=== PATIENT | male | born 1955 | race Caucasian/White ===

== ENCOUNTER 2018-06-25 06:55 | Inpatient (IN) ==
--- NOTE | 2018-06-25 07:40 | PROVIDER DOCUMENTATION ---
HPI-Respiratory General - General Chief Complaint: Chest Pain Stated Complaint: chest pain Time Seen by Provider: 06/25/18 07:36 Source: patient Allergies/Adverse Reactions: Patient Allergies Allergy/AdvReac Type Severity Reaction Status Date / Time hydrochlorothiazide Allergy Unknown Verified 06/25/18 07:34 Home Medications: Home Medication List Medication Instructions Recorded Confirmed Last Taken Type ATORVAstatin [Lipitor] 40 mg PO QHS 08/20/16 06/25/18 01/29/17 History Amlodipine [Norvasc] 10 mg PO DAILY 08/20/16 06/25/18 01/29/17 20:00 History Clopidogrel Bisulfate [Plavix] 75 mg PO DAILY 08/20/16 06/25/18 01/25/17 History Ferrous Sulfate [Iron] 325 mg PO DAILY 01/28/17 06/25/18 01/29/17 11:00 History Allopurinol 100 mg PO DAILY 06/25/18 06/25/18 Unknown History Aspirin [Adult Aspirin] 81 mg PO DAILY 06/25/18 06/25/18 Unknown History Carvedilol 12.5 mg PO BID 06/25/18 06/25/18 Unknown History Cinacalcet HCl [Sensipar] 30 mg PO EVERY OTHER DAY MDD MWF 06/25/18 06/25/18 Unknown History Gabapentin 100 mg PO BID 06/25/18 06/25/18 Unknown History Insulin Glargine,Hum.rec.anlog 5 unit SQ HS 06/25/18 06/25/18 Unknown History [Lantus Solostar] Insulin Lispro [Humalog] 5 unit SQ TID MDD SLIDING SCALE 06/25/18 06/25/18 Unknown History Mycophenolate Mofetil 500 mg PO BID 06/25/18 06/25/18 Unknown History Pantoprazole Sodium 40 mg PO BID 06/25/18 06/25/18 Unknown History Prednisone 5 mg PO DAILY 06/25/18 06/25/18 Unknown History Sodium Bicarbonate 1,300 mg PO BID 06/25/18 06/25/18 Unknown History Sulfamethoxazole/Trimethoprim 400 mg PO EVERY OTHER DAY MDD M, 06/25/18 Unknown History [Bactrim 400-80 mg Tablet] W, F Tacrolimus 0.5 mg PO DAILY MDD every am, one 06/25/18 06/25/18 Unknown History capsule Tacrolimus 1 mg PO HS 06/25/18 06/25/18 Unknown History Tamsulosin HCl 0.4 mg PO DAILY 06/25/18 06/25/18 Unknown History Amoxicillin/Potassium Clav 1 ea PO Q12H #14 tab 06/29/18 Unknown Rx [Augmentin 500-125 Tablet] Linezolid [Zyvox] 600 mg PO Q12HR #14 tab 06/29/18 Unknown Rx - History of Present Illness-Resp Quality of Pain: reports: sharp Onset/Duration: reports: abrupt, this morning Timing: reports: still present Context: reports: other (fever and cough associated with respiratory distress) Cough Quality/Degree: reports: moderate Current Respiratory Medication Therapy: Initiated other (non-rebreather) Modifying Factors: improves with: exertion Associated Symptoms: reports: cough, fever/chills, heart racing, hurts to breathe, shortness of breath Similar Symptoms Previously?: No Recently seen or treated by another doctor?: No Review of Systems - Adult - REVIEW OF SYSTEMS - ADULT Constitutional: reports: fever Eyes: reports: no symptoms reported Ears, Nose, Mouth & Throat: reports: no symptoms reported Cardiovascular: reports: chest pain, palpitations Respiratory: reports: cough, pleurisy, shortness of breath Gastrointestinal: reports: vomiting. denies: diarrhea Genitourinary: reports: no symptoms reported Integumentary: reports: no symptoms reported Neurological: reports: no symptoms reported. denies: seizure, syncope Psychiatric: reports: no symptoms reported Endocrine: reports: no symptoms reported Hematologic/Lymphatic: reports: no symptoms reported Allergic/Immunologic: reports: no symptoms reported Past History - Adult - PAST MEDICAL HISTORY-ADULT Review of Records: reports: Nursing Assessment Review, Medications Reviewed - PRIOR SURGERIES/PROCEDURES Surgical/Procedure History: reports: other (kidney transplant) Physical Exam-General - PHYSICAL EXAM-ADULT Initial Vital Signs Reviewed: Yes - CONSTITUTIONAL General Appearance: moderate distress - EYES Eyes: PERRL/EOMI - HEAD, EARS, NOSE, MOUTH & THROAT HENMT: normocephalic/atraumatic - NECK Neck: lymphadenopathy. negative: tender midline - RESPIRATORY Respiratory: respiratory distress, accessory muscle use, crackles, rhonchi, retractions - CARDIOVASCULAR Cardiovascular: no edema, no JVD, tachycardia - GASTROINTESTINAL (ABDOMEN) Abdominal Exam: non tender, soft - LYMPHATIC Lymphatic: no adenopathy - MUSCULOSKELETAL Back Exam: no CVA tenderness, no vertebral tenderness Extremity: non-tender - SKIN Integumentary: normal color, normal turgor, warm/dry - NEUROLOGIC Neurologic: branch account executive II-XII nml as tested, no motor/sensory deficits - PSYCHIATRIC Psych/Mental Status: normal mood/affect Progress - PLAN OF CARE/RESULTS Progress/Plan/Lab Results: Orders Category Date [facility] Routine AdmDCTranf 06/25/18 08:55 Active Activity - Up with Assistance ORDERED Care 06/25/18 10:11 Active Cardiac Monitoring DIRECTED Care 06/25/18 08:31 Completed Elevate Head of Bed DIRECTED Care 06/25/18 10:11 Active Encourage Fluids DIRECTED Care 06/25/18 10:11 Active IV Insertion ORDERED Care 06/25/18 08:31 Completed Intake and Output-Strict Q 8-HR ASSESS Care 06/25/18 10:11 Active Notify MD of + Sepsis Screen NOW Care 06/25/18 08:31 Completed Notify Physician As Ordered Care 06/25/18 08:31 Active Nursing- Assist w/ IS as order ORDERED Care 06/25/18 10:11 Active Nursing- MD Consult Request ROUTINE Care 06/25/18 08:39 Completed Nursing- MD Consult Request ROUTINE Care 06/25/18 08:45 Completed Saline Loc NOW Care 06/25/18 07:25 Completed Turn, Cough and Deep Breathe Q2HR Care 06/25/18 10:11 Active Update & Confirm Home Medicati ROUTINE Care 06/25/18 08:39 Completed Vital Signs Order Q 4-HR ASSESS Care 06/25/18 10:11 Active Z-Document. for Tele Applied ORDERED Care 06/25/18 10:11 Completed MD [Physician/Provider Consults] Routine Cons 06/25/18 08:38 Ordered MD [Physician/Provider Consults] Routine Cons 06/25/18 08:43 Ordered Social Service Consult Routine Cons 06/25/18 10:11 Active Renal Diet Diet 06/25/18 08:55 Completed CHEST-PORTABLE [RAD] Stat Exams 06/25/18 07:26 Completed ABG [RESP] Routine Lab 06/25/18 07:45 Completed BLOOD CULTURE [BLDCUL] Stat Lab 06/25/18 08:00 Completed CBC WITH DIFF [HEME] Routine Lab 06/26/18 04:45 Completed CBC WITH DIFF [HEME] Stat Lab 06/25/18 07:25 Completed CK TOTAL [CHEM] Stat Lab 06/25/18 07:25 Completed COMPREHENSIVE METABOLIC PANEL [CHEM] Routine Lab 06/26/18 04:45 Completed COMPREHENSIVE METABOLIC PANEL [CHEM] Stat Lab 06/25/18 07:25 Completed INFLUENZA SCREEN A/B Stat Lab 06/25/18 07:25 Completed LACTATE, PLASMA [CHEM] Lab 06/25/18 12:05 Completed LACTATE, PLASMA [CHEM] Lab 06/25/18 14:47 Completed LACTATE, PLASMA [CHEM] Stat Lab 06/25/18 07:25 Completed PRO B-NATRIURETIC PEPTIDE Stat Lab 06/25/18 07:25 Completed TROPONIN T Stat Lab 06/25/18 07:25 Completed URINALYSIS [URINALYSIS] Stat Lab 06/25/18 07:30 Completed 0.9% Sodium Chloride Inj [Ns] 1,000 ml Med 06/25/18 09:00 Discontinued IV 50 mls/hr 0.9% Sodium Chloride Inj [Ns] 1,000 ml Med 06/25/18 08:36 Discontinued IV Wide Open Acetaminophen [Tylenol] Med 06/25/18 08:55 Discontinued 650 mg PO Q4H PRN PRN Albuterol 2.5MG/Ipratrop 0.5MG [Duoneb (A & A)] Med 06/25/18 08:45 Discontinued 3 ml INH NOW ONE Budesonide [Pulmicort] Med 06/25/18 19:30 Discontinued 0.5 mg INH RTQ12H Heparin Med 06/25/18 21:00 Discontinued 5,000 unit SUBQ Q12H Ipratropium [place] Neb [Atrovent Neb] Med 06/25/18 11:30 Discontinued 0.5 mg INH RTQ4H Levalbuterol Neb [Xopenex Neb] Med 06/25/18 11:30 Discontinued 1.25 mg INH RTQ4H Linezolid 600 mg/D5w [Zyvox 600 mg/D5w] Med 06/25/18 08:45 Discontinued 600 mg in 300 ml IV Q12H Methylprednisolone Sod Succ [Solu-Medrol] Med 06/25/18 08:46 Discontinued 125 mg IV NOW ONE Methylprednisolone Sod Succ [Solu-Medrol] Med 06/25/18 17:00 Discontinued 40 mg IV Q8H Piperacillin/Tazobactam [Zosyn] 2.25 gm Med 06/25/18 17:00 Discontinued 0.9% Sodium Chloride Inj [Ns] 50 ml IV Q8H Piperacillin/Tazobactam [Zosyn] 3.375 gm Med 06/25/18 08:26 Discontinued 0.9% Sodium Chloride Inj [Ns] 50 ml IV NOW Sodium Chloride 0.9% Neb [Ns Neb] Med 06/25/18 09:00 Discontinued 5 ml INH DIRECTED Aerosol Treatments Routine Ot 06/25/18 08:45 Completed Aerosol Treatments Routine [facility] 06/25/18 08:47 Completed Aerosol Treatments Stat [facility] 06/25/18 08:45 Completed Aerosol Treatments Stat [facility] 06/25/18 08:47 Completed Incentive Spirometer Routine [facility] 06/25/18 10:11 Completed Oxygen Device Routine [facility] 06/25/18 10:11 Completed Oxygen Device Stat [facility] 06/25/18 08:31 Completed Pulse Oximetry Routine [facility] 06/25/18 10:11 Completed Pulse Oximetry Stat [facility] 06/25/18 07:25 Completed Telemetry [OM.EQ] Routine [facility] 06/25/18 10:11 Active EKG [EKG] Stat Ther 06/25/18 07:05 Draft Transfer/Admit Order [TRANSFER] Routine Transfer 06/25/18 08:51 Completed Result Diagrams: 06/29/18 11:34 06/28/18 07:07 Departure - Departure Date of Disposition Decision: 06/25/18 Time of Disposition Decision: 08:55 DIAGNOSIS: Sepsis, Left lower lobe pneumonia, 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 Attestation - Physician/ ZHEN Attestation Patient care was provided by Advanced Practice Provider:: No The physician spent face to face time with patient:: Yes Advanced Practice Provider documentation review:: Supervising physician onsite and consulted in the evaluation and care of this patient. The physician did have a face to face encounter with the patient.
[2018-06-25 07:52] LABS: ALLEN TEST NO; BE -5.6 mmoll (-3.0-3.0); BLOOD TYPE ARTERIAL; HCO3-(ACT) 20.5 mmoll (20.0-26.0); METHB 1.1 % (0.0-1.5); MODALITY PRB; O2(CT) 15.6 mL/dL (15.0-23.0); O2HB 94.2 % (95.0-99.0); PCO2(98.6) 39 mmHg (35-45); PO2(98.6) 83 mmHg (60-100); SAMPLE BLOOD; SAO2 97.7 % (95.0-100.0); THB 11.7 g/dL (11.5-17.4); pH(98.6) 7.32 (7.35-7.45)
--- NOTE | 2018-06-25 07:59 | Diag Imaging Result Doc PS360 ---
EXAM: CHEST-PORTABLE 06/25/2018 HISTORY: cough TECHNIQUE: AP portable upright at 0737 COMMENT: There is alveolar opacity throughout the left lower lobe. This was not present on 11/08/2017. IMPRESSION: Left lower lobe pneumonia. Electronically signed by Kendrick Ward 06/25/2018 7:57 AM
[2018-06-25 08:00] LABS: URINE SOURCE VOIDED
[2018-06-25 08:15] LABS: BASO# 0.03 X1000 (0.0-0.2); BASO% 0.4 % (0.0-0.8); EOS# 0.07 X1000 (0.0-0.7); EOS% 0.9 % (0.0-10.0); HEMATOCRIT 40.3 % (42.0-52.0); HEMOGLOBIN 12.7 g/dL (14.0-18.0); IMM GRAN# 0.04 X1000 (0.0-0.04); IMM GRAN% 0.5 % (0.0-0.5); LYMPH# 0.66 X1000 (1.2-3.4); LYMPH% 8.3 % (20.5-51.1); MCH 28.7 PG (27-31); MCHC 31.5 g/dL (33-37); MCV 91.2 FL (81-99); MONO# 0.29 X1000 (0.11-0.59); MONO% 3.6 % (1.7-9.3); MPV 11.8 FL (7.4-10.4); NEUT# 6.91 X1000 (1.4-6.5); NEUT% 86.3 % (42.2-75.2); PLT 177 X1000 (130-400); RBC 4.42 XMIL (4.7-6.1); RDW 14.7 % (11.5-14.5)
[2018-06-25 08:16] LABS: BILIRUBIN URINE NEGATIVE (NEGATIVE); BLOOD URINE SMALL (NEGATIVE); COLOR YELLOW; GLUCOSE URINE 300 mg/dL (NEGATIVE); KETONE URINE NEGATIVE (NEGATIVE); LEUKOCYTES URINE NEGATIVE (NEGATIVE); NITRITE URINE NEGATIVE (NEGATIVE); PH URINE 6.5; PROTEIN URINE 200 mg/dL (NEGATIVE); SP GRAVITY URINE 1.013; TURBIDITY URINE CLEAR (CLEAR); UROBILINOGEN URINE NORMAL (NORMAL)
[2018-06-25 08:18] LABS: UR EPITHELIAL CELLS <10 /HPF (<10); URINE BACTERIA NEGATIVE /HPF; URINE RBC <10 /HPF (<10); URINE WBC <10 /HPF (<10)
--- NOTE | 2018-06-25 08:22 | EKG Report ---
Test Performed on : 06/25/2018 07:07:05 AM Test Reason : cp Blood Pressure : / mmHG Vent. Rate : 101 BPM Atrial Rate : 101 BPM P-R Int : 128 ms QRS Dur : 068 ms QT Int : 300 ms P-R-T Axes : 056 049 085 degrees QTc Int : 389 ms Sinus tachycardia. Nonspecific ST and T wave abnormality Abnormal ECG When compared with ECG of 20-AUG-2016 10:54, Vent. rate has increased BY [address] now depressed in Anterior leads Nonspecific T wave abnormality now evident in Lateral leads Unconfirmed Result
[2018-06-25 08:26] LABS: ALB/GLOB RATIO 1.6; ALBUMIN 3.8 g/dL (3.5-5.0); CALCIUM 9.6 mg/dL (8.8-10.2); CREATININE 3.3 mg/dL (0.7-1.2); POTASSIUM 4.6 mmol/L (3.5-5.1); TOTAL BILIRUBIN 0.38 mg/dL (0.20-1.00); TOTAL PROTEIN 6.2 g/dL (6.3-8.3)
[2018-06-25] MEDS ORDERED: ZOSYN 3.375 GM in NS 50 ML IV ONE (08:26)
[2018-06-25] MEDS ORDERED: NS 1,000 ML IV ONE (08:36)
[2018-06-25] MEDS ORDERED: DUONEB (A & A) INH ONE (08:45)
[2018-06-25] MEDS: ZYVOX 600 MG/D5W 600 MG/300 ML IVPB IV SCH ×2 (08:45→20:42)
[2018-06-25] MEDS ORDERED: SOLU-MEDROL IV ONE (08:46)
[2018-06-25 08:52] LABS: BANDS 10 % (0-1); EOS 4 % (1-10); HYPOCHROM 1+; LYMPHS 12 % (21-51); SEGS 74 % (42-75)
[2018-06-25] MEDS ORDERED: TYLENOL PO PRN (08:55)
[2018-06-25] MEDS ORDERED: NS NEB INH SCH (09:00)
[2018-06-25] MEDS ORDERED: COREG PO SCH (10:00)
[2018-06-25] MEDS: NEURONTIN PO SCH ×2 (10:45→20:44)
[2018-06-25] MEDS: NS 1,000 ML IV SCH (10:45)
[2018-06-25] MEDS: PROTONIX PO SCH ×2 (10:46→20:43)
[2018-06-25] MEDS: FLOMAX PO SCH (10:46)
[2018-06-25] MEDS: ZYLOPRIM PO SCH (10:46)
[2018-06-25] MEDS: PROGRAF PO SCH (10:46)
[2018-06-25] MEDS: ASPIRIN EC PO SCH (10:46)
[2018-06-25] MEDS: SODIUM BICARBONATE PO SCH ×2 (10:46→20:43)
[2018-06-25] MEDS: PREDNISONE PO SCH (10:46)
[2018-06-25] MEDS: CELLCEPT PO SCH ×2 (10:47→21:28)
--- NOTE | 2018-06-25 10:51 | ED EKG INTERP ---
This chart was entered by Julianna Stewart Scribe, acting as scribe for Sandi Franco MD. EKG Interpretation - EKG Time of EKG reading by physician:: 07:10 EKG Read and Signed by:: Sandi Franco EKG Interpretation (*Must complete 3 of following elements*): Abnormal Rate: 101 Rhythm: sinus tachycardia [place]: normal QRS: normal NV Interval: normal Comments: nonspecific ST and T wave abnormality Attestation - Physician/ ZHEN Attestation Patient care was provided by Advanced Practice Provider:: No The physician spent face to face time with patient:: Yes Advanced Practice Provider documentation review:: Supervising physician onsite and consulted in the evaluation and care of this patient. The physician did have a face to face encounter with the patient. This chart was documented by the indicated scribe, (Julianna Stewart Scribe) and accurately reflects the services I performed and decisions made by me, Sandi Franco MD, as attested by the provider's signature.
--- NOTE | 2018-06-25 10:53 | HISTORY AND PHYSICAL ---
PRIMARY CARE PROVIDER: Dr. Clyde Pavon out of [place]. POLITICAL CONSULTANT: Dr. Pola Rivera. HISTORY OF PRESENT ILLNESS: Mr. Jose Antonio Mcbride is a 63-year-old, male , with the medical history of end-stage renal disease who at one point was receiving peritoneal dialysis in May 2017. He went for a right renal transplant. Also has a medical history of coronary disease with stents, anxiety, diabetes, hypertension and hypothyroidism who now presents with complaints of shortness of breath, left pleuritic chest pain that radiated from neck down, and fever with chills and shakes. He states that around 10:00 p.m. last night he woke himself up with severe reflux to the point where it was burning his lungs. He went back to sleep and then around 3:00 a.m. got up to go the restroom and noticed that the left side of his neck was stinging. He went back to sleep and then around 5:00 a.m. woke up once again and still had the left-sided neck stinging down the chest, worse with inspiration, but also noticed he was having more shortness of breath with chills and shivers. He denied any cough at that time. At around 6:30 this morning EMS came to pick him up. He also had emesis green bile, but no nausea at this time. When he presented here, he had O2 saturations in the 70s on room air. He was placed on a partial rebreather with an O2 saturation that increased to 97%. ABGs are stable on a partial rebreather with a pO2 of 83. Workup revealed that he has a left lower lobe pneumonia. White count is not yet elevated, but he does have elevation in his lactate. He was mildly tachycardic. He was tachypneic. We will admit him to ICU. Consult his crate icer, Dr. Rivera. And we will consult Pulmonary to follow along. We will attempt to wean down on oxygen. Start him on antibiotics. PAST MEDICAL HISTORY: 1. End-stage renal disease that required peritoneal dialysis status post right renal transplant May 2017. Still continues with CKD of the new kidney. Baseline creatinine is 3.1 to 3.3. Today it is 3.3. 2. Hypertension. 3. Hypothyroidism. 4. Coronary artery disease with myocardial infarctions and two cardiac stents. 5. Anxiety. 6. Hyperlipidemia. 7. Diabetes mellitus type 2. 8. Neuropathy bilateral lower extremities for eight months. 9. Gout. 10.Iron-deficiency anemia. 11.GERD. PAST SURGICAL HISTORY: 1. May 2017, right renal transplant. 2. Lipoma excision from stomach. 3. PTCA with two cardiac stents. 4. History of colonoscopy and EGD back in 2009. 5. Left CEA. No stroke. 6. Peritoneal dialysis and hemodialysis catheter in the past - now removed. SOCIAL HISTORY: He is a two pack per day smoker for at least 35. He said even maybe 40 years. He quit in 2004. He denies alcohol or illicit drug use. 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 He is . FAMILY HISTORY: Father of liver disease. Mother had stroke, hypertension , carotid disease. Sister has kidney disease. ALLERGIES: No known drug allergies. HOME MEDICATIONS: Immunosuppression medications include: 1. Tacrolimus or Prograf 0.5 mg p.o. daily and 1 mg p.o. nightly. 2. Prednisone 5 mg p.o. daily. 3. Mycophenolate 500 mg p.o. b.i.d. 4. Bactrim 400-80 every other day on Mondays, Wednesdays, Fridays prophylactically. 5. Lipitor 40 mg p.o. nightly. 6. Allopurinol 400 mg p.o. daily. 7. Norvasc 10 mg p.o. daily. 8. Aspirin 81 mg p.o. daily. 9. Carvedilol 12.5 mg p.o. b.i.d. 10.Sensipar 30 mg p.o. every other day which are Mondays, Wednesdays, Fridays. 11.Plavix 75 mg p.o. daily. 12.Iron 325 mg p.o. daily. 13.Neurontin 100 mg p.o. b.i.d. 14.Lantus 5 units subcutaneous nightly. 15.Humalog 5 units subcutaneous t.i.d. sliding scale. 16.Protonix 40 mg p.o. b.i.d. 17.Sodium bicarbonate 1300 mg p.o. b.i.d. 18.Flomax 0.4 mg p.o. daily. REVIEW OF SYSTEMS: A 14 point review of systems are complete and negative except for those mentioned above in HPI. PHYSICAL EXAM: VITAL SIGNS: Temperature reported at 101.0 degrees Fahrenheit. Not recorded in the computer. Heart rate 88, respiratory rate 20, blood pressure 120/70. O2 saturation 96% on 80% partial rebreather. Height 5 feet and 6 inches tall. Weight 220 pounds. BMI is 35.5. GENERAL: Mr. Jose Antonio Mcbride is a 63-year-old, male, who is in no acute distress. He is mildly tachypneic, but he is able to answer all questions appropriately. HEENT: Normocephalic and atraumatic. Pupils are equal, round and reactive to light. Extraocular movements intact. Mucous membranes are dry. NECK: Trachea is midline. CARDIOVASCULAR: S1, S2. Regular rate and rhythm. No rubs, gallops or murmurs. Trace lower extremity edema. Plus-two dorsalis and radial pulses. Negative for JVD or carotid bruits. PULMONARY: Clear to auscultation with bilateral breath sounds. Decreased in the left base posteriorly. Tolerating partial rebreather. Mildly tachypneic with no extreme work of breathing. GASTROINTESTINAL: Soft, nontender, nondistended. Positive bowel sounds x4. EXTREMITIES: Moves all extremities equal with full range of motion. NEUROLOGIC: Awake, alert and oriented x3. Follows commands. Sensory is intact. SKIN: Warm, dry and intact. LABORATORY DATA: White blood cells 8.0, hemoglobin 12, hematocrit 40, platelet count 177,000. ABG on partial rebreather: pH 7.32, pCO2 39, pO2 83, base access negative 5.6. Saturations 94%. Lactate 1.4. Sodium 140, potassium 4.6, BUN 32, creatinine 3.3, glucose 152, calcium 9.6. Bilirubin 0.3, AST 10, ALT 9. CK 62. Troponin less than 0.01. ProBNP 1496. Albumin is 3.8. Serum lactate 2.3. Urinalysis 200 protein, 300 glucose, small blood, otherwise negative. IMAGIN. Chest x-ray: Left lower lobe pneumonia. 2. EKG: Sinus tachycardia, rate 101, QTc 389. IMPRESSION AND PLAN: 1. Likely aspiration pneumonia due to significant spell of reflux around 10 o' clock last night. His symptoms started about 3 o'clock this morning. He is febrile. Lactate is up a little bit. He will be on Zyvox and Zosyn renal dose. He received IV fluid hydration. He is requiring partial rebreather at this time. We will wean as needed and consult Pulmonary. We will watch temporarily in the ICU. 2. Acute hypoxemic respiratory failure. He is improving with nebulizers. He has a history of smoking. Quit in 2004. We will do IV steroids for now. 3. History of end-stage renal disease now with chronic kidney disease and right renal transplant. We will resume his immunosuppression medications. We will also consult Dr. Rivera who follows him. 4. Hypertension. Continue home medications. 5. Hypothyroidism. Continue Synthroid. 6. Coronary artery disease. Chest pain was pleuritic. Cardiac enzymes are negative. 7. Hyperlipidemia. Continue statin. 8. Diabetes mellitus. We will do pattern blood glucoses and sliding-scale insulin. 9. Gout. 10.Bilateral neuropathy of the feet. Continue Neurontin. 11.Benign prostatic hypertrophy. Continue Flomax. 12.Gastroesophageal reflux disease. Continue with proton pump inhibitor. 13.Deep venous thrombosis prophylaxis. Heparin. Dictated by JONG Méndez for Harish Lilly MD cc: JONG Méndez MD Robert Hall, MD Reginald D. Gladish, MD I agree with most components of history, physical, assessment and plan. A separate addendum has been dictated. [facility]
--- NOTE | 2018-06-25 10:55 | HISTORY AND PHYSICAL ---
ADDENDUM: I agree with most components of history, physical, assessment, and plan. In brief, Mr. Mcbride, who is a 63-year-old man with history off end-stage renal disease, status post renal transplant in May 2017, coronary artery disease and PCI about 15 years ago, insulin- dependent diabetes mellitus, and severe GERD, came in because of sudden onset left-sided chest pain, shortness of breath, and vomiting which happened at 3 a.m. today morning. The patient thinks that he had a bout of severe GERD and he might have aspirated. He denies any sick contacts or any flu symptoms. He is vaccinated against influenza this season and pneumonia in the past. VITAL SIGNS: His temperature was not charted. I am told it was noted to be more than 100 degrees Fahrenheit, tachycardic with a pulse in the 100s per minute, respiratory rate 30 per minute, blood pressure 120/70. He is currently on a Venturi mask breathing in the 20s with a saturation of 96%. PHYSICAL EXAMINATION: GENERAL: Appears morbidly obese. In mild distress because of shortness of breath. HEENT: Oral cavity is moist. RESPIRATORY: Significantly decreased air entry with inspiratory crackles, left infrascapular region. Good air entry, right hemithorax. CARDIOVASCULAR: S1, S2 normal. No murmur, rub, or gallop. ABDOMEN: Soft, obese. No hepatosplenomegaly. EXTREMITIES: Mild lower extremity edema. LABS: Suggestive of no leukocytosis. Eosinophil count of 0.9. Metabolic acidosis, what appears to be as chronic kidney disease which appears to be at baseline. MICROBIOLOGY: Flu screen was negative. Blood culture in lab. Chest x-ray suggestive of left- sided chest infiltrate. ASSESSMENT: 1. Acute hypoxic respiratory failure. 2. Sepsis due to left lower lobe pneumonia. 3. Previous history of end-stage renal disease, now chronic kidney disease with a glomerular filtration rate in the stage IV to stage V range, status post renal transplant. 4. History of insulin-dependent diabetes mellitus. 5. Immunosuppression for kidney transplant. 6. Peripheral neuropathy and chronic pain. 7. Hyperlipidemia. 8. History of coronary artery disease, status post percutaneous coronary intervention and stent in 2004. 9. Morbid obesity. 10. Benign prostatic hypertrophy. PLAN: 1. I will start the patient on intravenous Zosyn and linezolid. I will add back his home Bactrim which I presume he was taking for PCP prophylaxis status post transplant, once he is more stable. 2. Continue intravenous fluids and oxygen treatment to maintain saturation more than 92%. 3. Continue his home immunosuppressive medications. He does not have any clinical features or lab evidence of adrenal insufficiency at the moment. Continue home prednisone dose. 4. Continue pantoprazole for GERD. Aspirin started for history of coronary artery disease. 5. Disposition. The patient will be monitored in the ICU for acute hypoxic respiratory failure and sepsis, and tenuous respiratory status. Plan of care was discussed with the patient and his at bedside. All of their questions have been answered satisfactorily. cc: Harish Lilly MD
[2018-06-25] MEDS: HUMULIN R SUBQ SCH ×3 (11:10→20:52)
[2018-06-25] MEDS: ATROVENT NEB INH SCH ×4 (12:20→23:27)
[2018-06-25] MEDS: XOPENEX NEB INH SCH ×4 (12:21→23:26)
[2018-06-25] MEDS: HUMALOG SUBQ SCH ×2 (12:44→16:59)
--- NOTE | 2018-06-25 16:11 | PULMONOLOGY CONSULTATION ---
DATE: 06/25/2018 REQUESTING PHYSICIAN: Dr. Harish Lilly. REASON FOR CONSULTATION: Pneumonia. HISTORY OF PRESENT ILLNESS: Mr. Mcbride is a 63-year-old white male status post renal transplantation, who reports he was doing well the day prior to admission. The patient has history of reflux and did eat a late evening meal. He did have an episode of reflux last night and then woke up in the morning with significant pleuritic pain on the left side. When EMS came to pick him up for dyspnea, he had an episode of emesis. The patient was hypoxemic on arrival to the emergency room. Chest x-ray revealed diffuse infiltrates in the left lung. PAST MEDICAL HISTORY/PROBLEM LIST: 1. End-stage renal disease, status post renal transplantation in May of 2012. He initially did well, but had a significant BK infection causing his creatinine to climb to 3. 2. Coronary artery disease with prior cardiac stents. 3. Hypertension. 4. Hypothyroidism. 5. Dyslipidemia. 6. Diabetes mellitus. 7. Peripheral neuropathy. 8. Gout. 9. Gastroesophageal reflux disease as per above. 10. History of left carotid endarterectomy. 11. Prior hemodialysis and peritoneal dialysis. SOCIAL HISTORY: The patient has a 35 pack-year history for tobacco, but has not smoked for several years. He continues to work on a farm. Social history of prior tobacco use. No alcohol use. FAMILY HISTORY: Noncontributory to current presentation. REVIEW OF SYSTEMS: As noted in the HPI. He reports pleurisy, dyspnea, cough without significant fevers or chills. PHYSICAL EXAM: General: Reveals a well-developed, well-nourished male, resting comfortably and in no distress. Vital Signs: Blood pressure 134/74, heart rate 70, respiratory rate 21, oxygen saturation 94%. HEENT: Pupils are equal and reactive. Oropharynx is clear. Neck: Supple. Chest: Reveals crackles throughout the left lung. Cardiac exam: S1, S2. Abdomen: Soft and obese. Extremities: Without edema. LABORATORIES: White blood count 8.00, hemoglobin 12.7, platelet count 177,000. Arterial blood gas reveals pH 7.32, pCO2 of 39, PO2 of 83. Chemistry: Sodium 140, potassium 4.6, chloride 108, bicarbonate 18. BUN 32, creatinine 3.3. Arterial blood gas on partial rebreather: A pH of 7.32, pCO2 of 39, PO2 of 83. IMPRESSION: A 63-year-old with prior tobacco history, immunocompromised host due to immunosuppression associated with renal transplantation, who presents with an acute community- acquired pneumonia, acute hypoxemic respiratory failure, and prominent gastroesophageal reflux. With presentation, aspiration is suspected. RECOMMENDATIONS: 1. Agree with current antibiotic regimen. 2. Would cross check any drugs with his immunosuppression prior to initiation ( note that there is a reaction between Zyvox and clonidine, clonidine currently on hold). 3. Continue immunosuppression to prevent graft rejection. 4. Continue oxygen for hypoxemic respiratory failure. 5. Educate patient about the importance of small meals at supper and reflux precautions. 6. Continue intensive care unit monitoring. The patient clinically appears to be improving over his initial presentation to the emergency room, but is at risk for decompensation requiring intubation. cc: Jagdish Casillas MD MTDD
[2018-06-25] MEDS: ZOSYN 2.25 GM in NS 50 ML IV SCH (16:59)
[2018-06-25] MEDS ORDERED: SOLU-MEDROL IV SCH (17:00)
[2018-06-25] MEDS: PULMICORT INH SCH (19:48)
[2018-06-25] MEDS: HEPARIN SUBQ SCH (20:43)
[2018-06-25] MEDS: LIPITOR PO SCH (20:44)
[2018-06-25] MEDS: COREG PO SCH (20:44)
[2018-06-25] MEDS: BASAGLAR SUBQ SCH (21:00)
--- NOTE | 2018-06-25 21:37 | NEPHROLOGY CONSULTATION ---
DATE: 06/25/2018 REASON FOR CONSULTATION: CKD, stage 4, following renal transplantation. HISTORY OF PRESENT ILLNESS: Mr. Mcbride is a 63-year-old man with a history of IgA nephropathy for which he underwent renal transplant approximately 1.5 years ago. Unfortunately, his case was complicated by BK virus infection, and his baseline creatinine is now approximately 3.5. He has been stable at this level for at least 6 months. He suffered an aspiration-type event last evening and had worsening respiratory distress this morning. He is now feeling somewhat more comfortable and breathing on a closed face mask. He did not have chills or fevers. PAST MEDICAL HISTORY: As above. He also has diabetes, obesity, hypertension. HOME MEDICATIONS: Reviewed as listed. ALLERGIES: Hydrochlorothiazide. SOCIAL HISTORY: He lives in [place] an farms [place]. No tobacco. FAMILY HISTORY: Otherwise noncontributory. REVIEW OF SYSTEMS: Otherwise noncontributory. PHYSICAL EXAMINATION: Vital Signs: Blood pressure 131/60, heart rate 64, respirations 21, temperature 99.9 degrees. General: No acute distress. Skin: Warm and dry. Eyes: Conjunctivae are pink. Neck: Neck veins are not distended. HENT: Oropharynx is clear. Heart: Regular. No gallops. Lungs: Equal. No crackles or wheezes. Abdomen: Soft, distended, nontender. Bowel sounds are present. No organomegaly. Extremities: Have no edema, clubbing, or cyanosis. Neurologic: Mild asterixis. IMPRESSION: 1. Chronic kidney disease, stage 4. He is at his baseline. I discussed the case directly with Dr. Lilly, and he will continue his home transplant medications at the routine doses. 2. Regarding his asterixis, this is likely related to his Neurontin, but he is reluctant to stop it. We will follow along. cc: Pola Rivera MD
[2018-06-26] MEDS: PROGRAF PO SCH ×3 (00:49→20:25)
[2018-06-26] MEDS: ZOSYN 2.25 GM in NS 50 ML IV SCH ×3 (00:56→16:40)
[2018-06-26] MEDS: ATROVENT NEB INH SCH ×6 (03:37→23:30)
[2018-06-26] MEDS: XOPENEX NEB INH SCH ×6 (03:37→23:30)
[2018-06-26 04:55] LABS: BASO# 0.01 X1000 (0.0-0.2); EOS# 0.01 X1000 (0.0-0.7); HEMATOCRIT 33.7 % (42.0-52.0); HEMOGLOBIN 10.6 g/dL (14.0-18.0); IMM GRAN# 0.41 X1000 (0.0-0.04); IMM GRAN% 1.8 % (0.0-0.5); LYMPH# 0.79 X1000 (1.2-3.4); LYMPH% 3.4 % (20.5-51.1); MCH 28.6 PG (27-31); MCHC 31.5 g/dL (33-37); MCV 91.1 FL (81-99); MONO# 2.29 X1000 (0.11-0.59); MPV 11.3 FL (7.4-10.4); NEUT% 84.8 % (42.2-75.2); PLT 161 X1000 (130-400); RDW 14.5 % (11.5-14.5); WBC 22.91 X1000 (4.8-10.8)
[2018-06-26 05:27] LABS: ALB/GLOB RATIO 1.3; ALBUMIN 3.2 g/dL (3.5-5.0); CALCIUM 9.3 mg/dL (8.8-10.2); CREATININE 3.3 mg/dL (0.7-1.2); POTASSIUM 5.1 mmol/L (3.5-5.1); TOTAL BILIRUBIN 0.5 mg/dL (0.20-1.00); TOTAL PROTEIN 5.6 g/dL (6.3-8.3)
[2018-06-26] MEDS: HUMULIN R SUBQ SCH ×4 (06:49→20:46)
[2018-06-26] MEDS: PULMICORT INH SCH ×2 (07:45→19:25)
[2018-06-26] MEDS: NS 1,000 ML IV SCH (08:04)
[2018-06-26] MEDS: ZYVOX 600 MG/D5W 600 MG/300 ML IVPB IV SCH ×2 (08:04→20:58)
[2018-06-26] MEDS: HUMALOG SUBQ SCH ×3 (08:04→16:41)
[2018-06-26] MEDS: PLAVIX PO SCH (09:32)
[2018-06-26] MEDS: PREDNISONE PO SCH (09:32)
[2018-06-26] MEDS: ASPIRIN EC PO SCH (09:32)
[2018-06-26] MEDS: FERROUS SULFATE PO SCH (09:33)
[2018-06-26] MEDS: ZYLOPRIM PO SCH (09:33)
[2018-06-26] MEDS: PROTONIX PO SCH ×2 (09:33→20:26)
[2018-06-26] MEDS: FLOMAX PO SCH (09:33)
[2018-06-26] MEDS: HEPARIN SUBQ SCH ×2 (09:34→20:24)
[2018-06-26] MEDS: SODIUM BICARBONATE PO SCH ×2 (09:34→20:25)
[2018-06-26] MEDS: COREG PO SCH ×2 (09:34→20:26)
[2018-06-26] MEDS: CELLCEPT PO SCH ×2 (09:35→20:25)
[2018-06-26] MEDS: NEURONTIN PO SCH ×2 (09:36→22:32)
--- NOTE | 2018-06-26 10:28 | Diag Imaging Result Doc PS360 ---
EXAM: CHEST-PORTABLE 06/26/2018 HISTORY: abnormal exam TECHNIQUE: AP portable at 0948 COMMENT: Compared to the previous study of 06/25/2018 there has been improvement in the alveolar opacities in the left chest. IMPRESSION: Improved left-sided pneumonia. Electronically signed by Kendrick Ward 06/26/2018 10:25 AM
--- NOTE | 2018-06-26 12:17 | PROGRESS NOTE ---
DATE: 06/26/2018 SUBJECTIVE: He looks well. He is sitting up, about to eat lunch. He does not look to be any distress. He is doing much better. OBJECTIVE: Vital Signs: Blood pressure 129/65, heart rate 59, respiratory rate 16, temperature 97.4 degrees. No fever. T-max 99.9 degrees. Cardiovascular: Regular rate and rhythm. Pulmonary: Diminished at the bases. Gastrointestinal: Soft, nontender, nondistended. Bowel sounds are positive. LABORATORY DATA: Creatinine is 3.3 with a bicarbonate of 19. Albumin a little low at 3.2. All those tests are negative. DIAGNOSTIC STUDIES: Chest x-ray looks greatly improved as far as his left lower lobe pneumonia. PROBLEM LIST: 1. Acute hypoxic respiratory failure that seems to be resolving. He is on 2 L. Saturations are 96%. Continue multiple current treatments. 2. Left lower lobe pneumonia with sepsis, with concern over gram-negative type pneumonia with immunocompromised state. He is currently on Zosyn and Zyvox, and seems to be doing very well. 3. Diabetes appears to be relatively well-controlled or well-controlled on current regimen. Check an A1c just to be on the safe side. He is on sliding scale I believe. 4. Hypertension appears to be controlled on current medications. 5. Renal transplant, on chronic immunosuppression. We will continue his regular medications and follow. 6. Coronary artery disease appears to be stable on current regimen. DISPOSITION: I think he is possibly stable for transfer to step-down, from my standpoint. He seems to be doing very well. Maybe work on trying to get him up a little bit, some pulmonary toilet. Appreciate Dr. Rivera's and Dr. Casillas's input. cc: Adi Smith MD
--- NOTE | 2018-06-26 13:18 | NEPHROLOGY PROGRESS NOTE ---
DATE: 06/26/2018 DATE SEEN: 06/26/2018 TIME SEEN: 0640 SUBJECTIVE: Mr. Mcbride is resting quietly in bed, states that he is breathing just a little bit better. He remains on a 50% Ventimask. OBJECTIVE: His most recent vital signs: His last temperature 97.4 degrees, blood pressure 151/62, heart rate 64, respirations 22. He is on 50% Ventimask, last recorded saturation 97%. Laboratory Data: Sodium is 140, potassium 5.1, chloride 111, CO2 of 19, BUN 34 , creatinine 3.3, glucose 148, anion gap of 10, calcium 9.3, albumin 3.2. White count 22.91, hemoglobin 10.6, hematocrit 33.7, platelet count 161,000. Intake and output: He has had 3530 in , 2425 out. PHYSICAL EXAMINATION: General: This is a 63-year-old white male resting quietly in bed. He appears chronically ill, in no acute distress. Skin: Warm and dry. HEENT: Normocephalic, atraumatic. Conjunctivae are pale pink. RAFAELA. Mucous membranes are dry. Neck : Supple. Trachea midline. No evidence of JVD. Cardiovascular: Regular rate and rhythm. Lungs: Clear to auscultation anterior. He remains on O2 support. Abdomen: Distended. Palpable donor kidney to the right lower quadrant. No tenderness noted. Positive bowel sounds. Genitourinary: Bess catheter is in place with adequate urine out. Extremities: Have no edema. No clubbing or cyanosis. Neurological: The patient is awake and alert x3. He does continue with slight asterixis to bilateral upper extremities. ASSESSMENT AND PLAN: 1. Chronic kidney disease, stage 4. Patient remains at his historical baseline of 3.3 to 3.5. He has been started on his transplant medications per routine doses. 2. Electrolytes and acid-base balance. These are acceptable. 3. Anemia. This is stable and acceptable. 4. Pneumonia with hypoxemia. This is followed by primary care and Pulmonology. I would like to thank you for allowing us to follow with this patient. Dictated by JONG Syed for Pola Rivera MD Face to face encounter, data reviewed, discussed with Gabriel Nagel on 06/26/18. I agree with the above assessment and plan of care. cc: JONG Syed MD MTDD
[2018-06-26] MEDS: LIPITOR PO SCH (20:25)
--- NOTE | 2018-06-26 20:29 | PULMONOLOGY PROGRESS NOTE ---
DATE: 06/26/2018 SUBJECTIVE: The patient is awake, alert, and conversant. He reports his breathing has significantly improved. He is eating breakfast without difficulty. He has been weaned down to 2 L per nasal cannula. OBJECTIVE: Vital Signs: Blood pressure 134/78, heart rate 60, respiratory rate 16, oxygen saturation 94%. He has been afebrile for the last 24 hours. HEENT: Pupils are equal and reactive. Oropharynx is clear. Neck: Supple. Chest: Reveals crackles at the left base. Cardiac: S1-S2. Abdomen: Soft and obese. Extremities: Without edema. LABORATORIES: Chest x-ray reveals significant improvement in the left-sided pneumonia. White blood count 22.9, hemoglobin 10.6, platelet count 161,000. Sodium 140, potassium 5.1, chloride 111, bicarbonate 19, BUN 34, creatinine 3.3, glucose 148. IMPRESSION: A 63-year-old with aspiration pneumonia and acute hypoxemic respiratory failure. The patient now has leukocytosis, but chest x-ray is significantly improving. He should be a candidate for transfer to the floor. RECOMMENDATION: 1. Continue current antibiotic regimen. 2. Continue to wean oxygen as tolerated. 3. Educate the patient about the importance of reflux precautions. He should eat a small meal in the evening, he should separate supper from bedtime by 3 to 4 hours, and he should elevate the head of his bed. cc: Jagdish Casillas MD
[2018-06-26] MEDS: BASAGLAR SUBQ SCH (22:28)
[2018-06-27] MEDS: ZOSYN 2.25 GM in NS 50 ML IV SCH ×3 (00:21→16:28)
[2018-06-27] MEDS: XOPENEX NEB INH SCH ×6 (03:45→23:52)
[2018-06-27] MEDS: ATROVENT NEB INH SCH ×7 (03:45→23:52)
[2018-06-27 04:52] LABS: BASO# 0.02 X1000 (0.0-0.2); BASO% 0.1 % (0.0-0.8); EOS# 0.12 X1000 (0.0-0.7); EOS% 0.8 % (0.0-10.0); HEMATOCRIT 34.6 % (42.0-52.0); HEMOGLOBIN 10.8 g/dL (14.0-18.0); IMM GRAN# 0.07 X1000 (0.0-0.04); IMM GRAN% 0.4 % (0.0-0.5); LYMPH# 0.78 X1000 (1.2-3.4); MCH 29.6 PG (27-31); MCHC 31.2 g/dL (33-37); MCV 94.8 FL (81-99); MONO# 1.44 X1000 (0.11-0.59); MONO% 9.1 % (1.7-9.3); MPV 11.5 FL (7.4-10.4); NEUT# 13.32 X1000 (1.4-6.5); NEUT% 84.6 % (42.2-75.2); PLT 157 X1000 (130-400); RBC 3.65 XMIL (4.7-6.1); RDW 15.1 % (11.5-14.5); WBC 15.75 X1000 (4.8-10.8)
[2018-06-27 05:16] LABS: ALBUMIN 2.9 g/dL (3.5-5.0); CALCIUM 9.7 mg/dL (8.8-10.2); CREATININE 2.9 mg/dL (0.7-1.2); PHOSPHORUS 3.9 mg/dL (2.7-4.5); POTASSIUM 4.5 mmol/L (3.5-5.1)
[2018-06-27] MEDS: HUMULIN R SUBQ SCH ×4 (06:24→21:54)
--- NOTE | 2018-06-27 06:37 | Diag Imaging Result Doc PS360 ---
EXAM: CHEST-PORTABLE HISTORY: abnormal exam TECHNIQUE: Portable chest COMPARISON: 06/26/2018 and 06/25/2018. FINDINGS: The lungs are well expanded. No cardiomegaly. No pleural effusions identified. There are infiltrates in the mid left lung. These are less pronounced compared to 06/25/2018. No improvement compared to 06/26/2018. IMPRESSION: Stable exam compared to the most recent study. Electronically signed by Diego Clark 06/27/2018 6:35 AM
[2018-06-27] MEDS: PULMICORT INH SCH ×2 (07:36→20:00)
[2018-06-27] MEDS: HUMALOG SUBQ SCH ×3 (08:03→16:28)
[2018-06-27] MEDS: HEPARIN SUBQ SCH ×2 (08:03→21:54)
[2018-06-27] MEDS: NEURONTIN PO SCH ×2 (08:04→21:55)
[2018-06-27] MEDS: PLAVIX PO SCH (08:04)
[2018-06-27] MEDS: ZYVOX 600 MG/D5W 600 MG/300 ML IVPB IV SCH ×2 (08:04→21:53)
[2018-06-27] MEDS: SODIUM BICARBONATE PO SCH ×2 (08:04→21:55)
[2018-06-27] MEDS: ASPIRIN EC PO SCH (08:05)
[2018-06-27] MEDS: PREDNISONE PO SCH (08:05)
[2018-06-27] MEDS: ZYLOPRIM PO SCH (08:05)
[2018-06-27] MEDS: PROTONIX PO SCH ×2 (08:05→21:55)
[2018-06-27] MEDS: FLOMAX PO SCH (08:05)
[2018-06-27] MEDS: COREG PO SCH ×2 (08:05→21:56)
[2018-06-27] MEDS: FERROUS SULFATE PO SCH (08:05)
[2018-06-27] MEDS: CELLCEPT PO SCH ×2 (08:06→21:56)
[2018-06-27] MEDS: PROGRAF PO SCH ×2 (08:06→21:55)
[2018-06-27] MEDS: SENSIPAR PO SCH (08:07)
--- NOTE | 2018-06-27 15:07 | NEPHROLOGY PROGRESS NOTE ---
DATE: 06/27/2018 SUBJECTIVE: He is feeling better and being transferred out to a floor bed. His shortness of breath improved. OBJECTIVE: Vital Signs: Blood pressure 149/87, heart rate 79, respirations 19, afebrile. General: No acute distress. Skin: Warm and dry. HEENT: Conjunctivae are pink. Neck: Neck veins are not distended. Heart: Regular. Lungs: Equal. No crackles. Abdomen: Soft and nontender. Bowel sounds are present. Extremities: Have no edema, clubbing or cyanosis. IMPRESSION: Renal transplant. Creatinine at historical baseline. He is receiving his routine outpatient immunosuppression and we will continue that without change. He does have a modest metabolic acidosis but no intervention at this time. cc: Pola Rivera MD
--- NOTE | 2018-06-27 18:17 | PROGRESS NOTE ---
DATE: 06/27/2018 SUBJECTIVE: The patient is sitting up in bed eating dinner. No major complaints. OBJECTIVE: Vital Signs: Blood pressure 145/69, heart rate 62, respiratory rate 24, temperature 98.2 degrees, 92% on room air. Cardiovascular: Regular rate and rhythm. Pulmonary: Bilateral breath sounds. Clear to auscultation. Gastrointestinal: Abdomen was soft, nontender, nondistended. Bowel sounds are positive. Extremity: No clubbing or cyanosis. Lymphatic: No peripheral edema. Neurological: Nonfocal. LABORATORY DATA: White count is 15, down from 22, hemoglobin and hematocrit 10 and 34, platelets 157,000. Creatinine at 2.9, down from 3.3 on admission. PROBLEM LIST: 1. Acute hypoxic respiratory failure due to pneumonia slowly improving. We will get a home O2 evaluation. Continue antibiotics and pulmonary toilet. 2. Renal transplant. He is on chronic immunosuppressant therapy. We will need to continue to monitor closely. 3. Diabetes is overall well controlled. We will continue his regular medications. 4. Acute on chronic renal failure status post transplant kidney function appears to be stable. DISPOSITION: Home when hopefully off oxygen. We will continue see how things look. It may take another day or 2 before discharge. cc: Adi Smith MD
[2018-06-27] MEDS: DUONEB (A & A) INH SCH ×2 (20:00→23:53)
[2018-06-27] MEDS: BASAGLAR SUBQ SCH (21:54)
[2018-06-27] MEDS: LIPITOR PO SCH (21:56)
[2018-06-28] MEDS: ZOSYN 2.25 GM in NS 50 ML IV SCH ×3 (01:11→16:27)
[2018-06-28] MEDS: ATROVENT NEB INH SCH ×6 (03:20→20:05)
[2018-06-28] MEDS: DUONEB (A & A) INH SCH ×4 (03:20→23:20)
[2018-06-28] MEDS: XOPENEX NEB INH SCH ×5 (03:57→20:06)
[2018-06-28] MEDS: HUMULIN R SUBQ SCH ×4 (06:03→22:07)
[2018-06-28 07:28] LABS: BASO# 0.03 X1000 (0.0-0.2); BASO% 0.2 % (0.0-0.8); EOS# 0.18 X1000 (0.0-0.7); EOS% 1.5 % (0.0-10.0); IMM GRAN% 0.8 % (0.0-0.5); LYMPH# 0.75 X1000 (1.2-3.4); LYMPH% 6.1 % (20.5-51.1); MCH 28.4 PG (27-31); MCHC 30.6 g/dL (33-37); MCV 92.8 FL (81-99); MONO# 1.03 X1000 (0.11-0.59); MONO% 8.4 % (1.7-9.3); MPV 11.3 FL (7.4-10.4); NEUT# 10.16 X1000 (1.4-6.5); PLT 161 X1000 (130-400); RBC 3.88 XMIL (4.7-6.1); RDW 14.9 % (11.5-14.5); WBC 12.25 X1000 (4.8-10.8)
[2018-06-28 07:42] LABS: CALCIUM 9.5 mg/dL (8.8-10.2); CREATININE 2.6 mg/dL (0.7-1.2); POTASSIUM 4.8 mmol/L (3.5-5.1)
[2018-06-28] MEDS: FERROUS SULFATE PO SCH (08:09)
[2018-06-28] MEDS: PROGRAF PO SCH ×2 (08:10→22:09)
[2018-06-28] MEDS: PLAVIX PO SCH (08:10)
[2018-06-28] MEDS: ZYLOPRIM PO SCH (08:10)
[2018-06-28] MEDS: COREG PO SCH ×2 (08:10→22:08)
[2018-06-28] MEDS: PROTONIX PO SCH ×2 (08:10→22:09)
[2018-06-28] MEDS: FLOMAX PO SCH (08:10)
[2018-06-28] MEDS: SODIUM BICARBONATE PO SCH ×2 (08:10→22:09)
[2018-06-28] MEDS: CELLCEPT PO SCH ×2 (08:10→22:08)
[2018-06-28] MEDS: ASPIRIN EC PO SCH (08:10)
[2018-06-28] MEDS: NEURONTIN PO SCH ×2 (08:10→22:10)
[2018-06-28] MEDS: HEPARIN SUBQ SCH ×2 (08:11→22:10)
[2018-06-28] MEDS: PREDNISONE PO SCH (08:11)
[2018-06-28] MEDS: HUMALOG SUBQ SCH ×3 (08:34→17:25)
[2018-06-28] MEDS: ZYVOX 600 MG/D5W 600 MG/300 ML IVPB IV SCH ×2 (09:02→22:07)
[2018-06-28] MEDS: PULMICORT INH SCH ×2 (10:35→19:30)
[2018-06-28] MEDS: LIPITOR PO SCH (22:09)
[2018-06-28] MEDS: BASAGLAR SUBQ SCH (22:10)
[2018-06-29] MEDS: ZOSYN 2.25 GM in NS 50 ML IV SCH ×3 (01:02→18:55)
[2018-06-29] MEDS: DUONEB (A & A) INH SCH ×3 (03:42→15:25)
[2018-06-29] MEDS: XOPENEX NEB INH SCH ×4 (03:53→15:28)
[2018-06-29] MEDS: ATROVENT NEB INH SCH ×4 (03:53→15:28)
[2018-06-29] MEDS: HUMULIN R SUBQ SCH ×3 (06:13→17:44)
[2018-06-29] MEDS: PULMICORT INH SCH (07:46)
[2018-06-29] MEDS: HUMALOG SUBQ SCH ×3 (08:00→17:45)
[2018-06-29] MEDS: ZYLOPRIM PO SCH (09:05)
[2018-06-29] MEDS: SODIUM BICARBONATE PO SCH ×2 (09:05→20:54)
[2018-06-29] MEDS: COREG PO SCH ×2 (09:06→20:54)
[2018-06-29] MEDS: FLOMAX PO SCH (09:06)
[2018-06-29] MEDS: PREDNISONE PO SCH (09:06)
[2018-06-29] MEDS: PROTONIX PO SCH ×2 (09:06→20:54)
[2018-06-29] MEDS: FERROUS SULFATE PO SCH (09:06)
[2018-06-29] MEDS: ASPIRIN EC PO SCH (09:06)
[2018-06-29] MEDS: NEURONTIN PO SCH ×2 (09:06→20:55)
[2018-06-29] MEDS: HEPARIN SUBQ SCH (09:06)
[2018-06-29] MEDS: PROGRAF PO SCH ×2 (09:06→20:54)
[2018-06-29] MEDS: PLAVIX PO SCH (09:06)
[2018-06-29] MEDS: CELLCEPT PO SCH ×2 (09:07→20:54)
[2018-06-29] MEDS: SENSIPAR PO SCH (09:24)
[2018-06-29] MEDS: ZYVOX 600 MG/D5W 600 MG/300 ML IVPB IV SCH (10:47)
[2018-06-29 11:42] LABS: HEMOGLOBIN 10.3 g/dL (14.0-18.0); MCH 28.2 PG (27-31); MCHC 30.3 g/dL (33-37); MCV 93.2 FL (81-99); RBC 3.65 XMIL (4.7-6.1); RDW 14.9 % (11.5-14.5); WBC 8.57 X1000 (4.8-10.8)
--- NOTE | 2018-06-29 13:33 | Diag Imaging Result Doc PS360 ---
EXAM: CT THORAX W/O CONTRAST - 06/29/2018 HISTORY: lung mass TECHNIQUE: CT thorax without contrast. No contrast administered per request of the referring provider. COMPARISON: 06/27/2018 portable chest radiograph FINDINGS: There are emphysematous changes which are most prominent at the right upper lobe. There is ill-defined infiltrate at the left upper lobe. There is mild infiltrate at the left lower lobe. There are small left and tiny right pleural effusions. There is mild atelectasis at the inferior left lingula. There is bilateral dependent atelectasis. There is no discrete pulmonary mass lesion identified which is distinguishable from infiltrate or atelectasis. There are calcified subcarinal mediastinal lymph nodes consistent with old granulomatous disease. There are mildly prominent noncalcified mediastinal lymph nodes. Possibly some generalized mild wall thickening involving mid and distal esophagus. IMPRESSION: Emphysematous changes, most prominent at the right upper lobe. Ill-defined infiltrate at left upper lobe compatible with pneumonia. Mild infiltrate at left lower lobe. Small left and tiny right pleural effusions. No discrete pulmonary mass lesion identified. Mildly prominent noncalcified mediastinal lymph nodes. Possible generalized mild wall thickening along the mid and distal esophagus. This exam was performed using automated exposure control, adjustment of mA or kV according to patient size, and/or use of iterative reconstruction technique. Electronically signed by Yo Randall 06/29/2018 1:31 PM
--- NOTE | 2018-06-29 17:36 | DISCHARGE SUMMARY ---
ADMISSION DATE: 06/25/2018 DISCHARGE DATE: DISCHARGE DIAGNOSIS: 1. Left lower lobe pneumonia. 2. Acute on chronic respiratory failure. 3. Emphysema, chronic obstructive pulmonary disease . 4. Renal transplant status post renal transplant chronic immunosuppression. 5. Diabetes. 6. Acute on chronic renal failure . CONSULTATIONS: Dr. Rivera, Pulmonary. This is a 63-year-old gentleman, end-stage renal status post transplants last year May 2017, baseline creatinine around 3.3, diabetes presenting with shortness of breath and cough. He had a focal dense area left lower lobe with concern over possible aspiration with reflux. He was on Zosyn and Zyvox. Pulmonary was also consulted please add that consultations. He was in the ICU initially but he improved very quickly. The following day he improved and is maintained on his regular medications. Dr. Rivera followed his kidney function was stable. His chest x-ray showed much improved pneumonia. He was transitioned to the floor. We were weaning his oxygen. He was on 4 to 5 L for a bit of time but now seems improved. His chest x-ray on the was somewhat improved and Nephrology followed but his kidney function stayed stable. His CT only showed mild infiltrate left lower lobe emphysema, left upper lobe disease and some mild wall thickening so he is discharged in stable condition. DISCHARGE MEDICATIONS: Lipitor 40, allopurinol 100 daily, Norvasc 10 daily, aspirin 81 daily, Coreg 12.5 b.i.d., Sensipar 30 every other day, Plavix 75 daily, iron 325 daily, gabapentin 100 b.i.d., glargine 5 daily, mycophenolate 500 b.i.d., Protonix 40 b.i.d., prednisone 5 daily, sodium bicarbonate 1300 b.i.d., Bactrim 400 every evening, tacrolimus 0.5 daily and 1 at night, Flomax 0.4 daily, Zyvox 600 q.12 for 7 days and Augmentin 500 q.12 for 7 days. DISCHARGE CONDITION: Is stable. His white count on discharge was normal at 8.5, was 22,000 at its peak. He is afebrile, breathing comfortably. He did qualify for home oxygen which I think we set up at 2 L and he did qualify for that and we set that up prior to discharge. FOLLOWUP: With his PCP, Dr. Gladish and renal transplant. TIME SPENT: 32 minutes . cc: Adi Smith MD
[2018-06-29 18:04] VITALS: BP 168/88
[2018-06-29] MEDS: LIPITOR PO SCH (20:54)
== END 2018-06-29 21:06 | disposition home or self-care (01) | DRG 871 ==
LOC: SUPCPDRO → ED 06:55 → ICU 09:39 → SUATTDRO 09:39 → 3N 06-27 09:29
PROVIDERS: ATTEND Internal Medicine
CPT/HCPCS: 71010; 71045; 71250; 80048; 80053; 80069; 81001; 82550; 82805; 82948; 83605; 83880; 84484; 85025; 85027; 87040; 87275; 87276; 87804; 93005; 94640; 94667; 94668; 94761; 94799; 96365; 96368; 96375; 99285; A9270; J1644; J1815; J2020; J2543; J2930; J7030; J7506; J7512; J7517; XXXXX